=== PATIENT | male | born 1985 | race Caucasian/White ===

== ENCOUNTER 2018-04-15 08:19 | Day surgery (SDC) | payer OTHER ==
[2018-04-11 17:01] LABS: Absolute Lymphocytes (CBC) 2.4 K/uL (0.7-4.9); Absolute Monocytes 0.5 K/uL (0.1-1.3); Absolute Neutrophil 5.3 K/uL (1.8-8.0); Basophils % 0.7 % (0-1.3); Eosinophils % 1.2 % (0-4.4); Hematocrit 44.9 % (39.6-49.0); Lymphocytes % 28.4 % (15.3-44.8); MCH 28.4 pg (27.0-35.0); MCV 81.5 fL (80-100); MPV 7.6 fL (7.6-11.3); Monocytes % 5.7 % (3.3-12.3); RBC Red Blood Cell Count 5.51 M/uL (4.33-5.43)
[2018-04-11 17:07] LABS: Potassium 4.2 mmol/L (3.5-5.1)
[2018-04-11 17:14] LABS: Albumin 4.3 g/dL (3.4-5.0); Bilirubin Direct 0.2 mg/dL (0-0.2); Bilirubin Total 0.8 mg/dL (0.2-1.0); Protein, Total 7.5 g/dL (6.4-8.2)
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
[2018-04-15] MEDS ORDERED: CEFOXITIN/SWI 1gm 1 GM/10 ML SYR ONE (08:41)
[2018-04-15] MEDS ORDERED: Ringers Lactate 1,000 ML IV ONE ×2 (08:41→11:30)
[2018-04-15] MEDS ORDERED: CEFAZOLIN/SWI 1gm 1 GM/10 ML SYR ONE (08:47)
[2018-04-15] MEDS ORDERED: PROPOFOL 200 MG/20 ML VIAL IV ONE (08:57)
[2018-04-15] MEDS ORDERED: ROCURONIUM 50 MG/5 ML VIAL IV ONE (08:57)
[2018-04-15] MEDS ORDERED: FENTANYL CITR 250 MCG/5 ML ONE (08:57)
[2018-04-15] MEDS ORDERED: LIDOCAINE 2% MPF 5 ML VIAL ONE (08:57)
[2018-04-15] MEDS ORDERED: MIDAZOLAM HCL 2 MG/2 ML INJ ONE (08:57)
[2018-04-15] MEDS ORDERED: ONDANSETRON HCL 40 MG/20 ML VIAL ONE (08:57)
[2018-04-15] MEDS ORDERED: FENTANYL CITR 100 MCG/2 ML ONE (10:34)
[2018-04-15] MEDS ORDERED: KETOROLAC 30 MG/ML INJ ONE (11:02)
[2018-04-15] MEDS ORDERED: Mastisol Adhesive Liq ONE (11:06)
[2018-04-15] MEDS: MEPERIDINE HCL 25 MG/0.5 ML ONE ×2 (11:36→11:41)
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
[2018-04-15] MEDS ORDERED: LABETALOL HCL 100 MG/20 ML ONE (11:56)
[2018-04-15] MEDS ORDERED: PROMETHAZINE 25 MG/ML VIAL ONE (12:11)
[2018-04-15] MEDS ORDERED: MEPERIDINE HCL 25 MG/0.5 ML ONE (12:14)
[2018-04-15] MEDS ORDERED: HYDROCODONE/APAP 5/325 MG TAB ONE (12:51)
--- NOTE | 2018-04-17 00:51 | DS ---
Date of Discharge: 04/15/2018 Diagnoses: Acute cholecystitis, symptomatic cholelithiasis, and morbid obesity. Procedures: Laparoscopic cholecystectomy, laparoscopic extensive lysis of adhesions. Disposition: Home. Activity: As tolerated. No heavy lifting. Followup: Follow up in my office in 1 week. Call for appointment on [phone]. Keep the area dry fo r 48 hours, then may shower. Medications: See orders. Medications: See orders. ETHEL/DESTINI Voice ID: [id number] Report ID: [id number]
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
== END 2018-04-15 13:55 | disposition home or self-care (01) ==
LOC: OR 08:19
PROVIDERS: ATTEND Surgery
PROC: 0DNW4ZZ Release Peritoneum, Percutaneous Endoscopic Approach (ICD-10-PCS; 2018-04-15)
PROC: 0FT44ZZ Resection of Gallbladder, Percutaneous Endoscopic Approach (ICD-10-PCS; principal; 2018-04-15 09:45)
DX: K80.12 Calculus of gallbladder with acute and chronic cholecystitis without obstruction (principal); K66.0 Peritoneal adhesions (postprocedural) (postinfection); K21.9 Gastro-esophageal reflux disease without esophagitis; E66.01 Morbid (severe) obesity due to excess calories; Z68.33 Body mass index [BMI] 33.0-33.9, adult; Z87.828 Personal history of other (healed) physical injury and trauma; Z80.3 Family history of malignant neoplasm of breast
CPT/HCPCS: 36415; 80048; 80076; 82150; 83690; 85025; 88304; J0690; J2175; J2250; J2405; J2550; J2704; J3010

== ENCOUNTER 2022-10-02 19:52 | Emergency (ER) | payer OTHER ==
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
[2022-10-02 20:57] LABS: Absolute Lymphocytes (CBC) 2.9 K/uL (0.7-4.9); Hematocrit 45.6 % (39.6-49.0); Lymphocytes % 33.2 % (15.3-44.8); MCV 83.5 fL (80-100); MPV 7.2 fL (7.6-11.3); RBC Red Blood Cell Count 5.46 M/uL (4.33-5.43)
[2022-10-02 21:16] LABS: Albumin 4.4 g/dL (3.4-5.0); Bilirubin Direct 0.2 mg/dL (0-0.2); Magnesium 2.1 mg/dL (1.6-2.4); Potassium 3.8 mEq/L (3.5-5.1); Protein, Total 8.2 g/dL (6.4-8.2); Troponin High Sensitivity 5.8 pg/mL (<58.9)
--- NOTE | 2022-10-02 21:26 | RAD REPORT ---
EXAM DESCRIPTION: [place] Single View10/02/2022 8:57 pm CLINICAL HISTORY: CHEST PAIN COMPARISON: No comparisons TECHNIQUE: Portable AP view of the chest. FINDINGS: The lungs are clear. No pneumothorax or effusion. The cardiomediastinal contours are unrem arkable. IMPRESSION: No acute cardiopulmonary process.
--- NOTE | 2022-10-02 22:49 | ER ---
Nurse's Notes [facility] Name: Jarek Navarrete Age: 36 yrs Sex: Male : 1985 Arrival Date: 10/02/2022 Time: 19:52 Bed Treatment Private MD: Diagnosis: Chest pain, unspecified Presentation: 10/02 20:20 Chief complaint: Patient states: right upper quadrant pain radiating to right chest lg3 starting around 1200 today and getting worse and more frequent. denies N/V. Coronavirus screen: Client denies travel out of the [place] in the last 14 days. At this time, the client does not indicate any symptoms associated with coronavirus-19. Ebola Screen: No symptoms or risks identified at this time. Risk Assessment: Do you want to hurt yourself or someone else? Patient reports no desire to harm self or others. Onset of symptoms was October 02, 2022. 20:20 Method Of Arrival: Ambulatory lg3 20:20 Acuity: BRANT 3 lg3 20:38 Initial Sepsis Screen: Does the patient meet any 2 criteria? No. Patient's initial lg3 sepsis screen is negative. Does the patient have a suspected source of infection? No. Patient's initial sepsis screen is negative. Triage Assessment: 20:23 General: Appears in no apparent distress. uncomfortable, Behavior is calm, cooperative. mb9 Pain: Complains of pain in right upper quadrant Pain radiates to chest. EENT: No deficits noted. No signs and/or symptoms were reported regarding the EENT system. Neuro: No deficits noted. Wild Agitation-Sedation Scale (RASS): 0 - Alert and Calm Level of Consciousness is awake, alert, obeys commands, Oriented to person, place, time, situation. Cardiovascular: Reports chest pain, Denies lightheadedness, shortness of breath, Capillary refill < 3 seconds Clubbing of nail beds is absent JVD is absent Patient's skin is warm and dry. Respiratory: No deficits noted. Airway is patent Respiratory effort is even, unlabored, Respiratory pattern is regular, symmetrical. GI: Abdomen is round non-distended, Reports upper abdominal pain, cramping. : No deficits noted. No signs and/or symptoms were reported regarding the genitourinary system. Derm: No deficits noted. No signs and/or symptoms reported regarding the dermatologic system. Skin is intact, is healthy with good turgor, Skin is dry, Skin is normal, Skin temperature is warm. Musculoskeletal: No deficits noted. No signs and/or symptoms reported regarding the musculoskeletal system. Circulation, motion, and sensation intact. Range of motion: intact in all extremities. Historical: - Allergies: 20:23 No Known Allergies; mb9 - Home Meds: 20:23 Clonazepam Oral [Active]; Lamictal Oral [Active]; Lunesta oral [Active]; olanzapine mb9 oral [Active]; Lisinopril Oral [Active]; - PMHx: 20:23 HTN; PTSD; mb9 - PSHx: 20:23 Vasectomy; Cholecystectomy; right ankle; bladder; mb9 - Immunization history:: Adult Immunizations up to date, Client reports having NOT received the Covid vaccine. - Social history:: Smoking status: Patient reports the use of cigarette tobacco products, smokes one-half pack cigarettes per day, Patient/guardian denies using alcohol, street drugs. Screenin:19 [facility] ED Fall Risk Assessment (Adult) History of falling in the last 3 months, mb9 including since admission No falls in past 3 months (0 pts) Confusion or Disorientation No (0 pts) Intoxicated or Sedated No (0 pts) Impaired Gait No (0 pts) Mobility Assist Device Used No (0 pt) Altered Elimination No (0 pt) Score/Fall Risk Level 0 - 2 = Low Risk Oriented to surroundings, Maintained a safe environment, Educated pt \T\ family on fall prevention, incl call for assistance when getting out of bed. Abuse screen: Denies threats or abuse. Nutritional screening: No deficits noted. Tuberculosis screening: No symptoms or risk factors identified. Assessment: 21:25 General: Appears in no apparent distress. Behavior is calm, cooperative, appropriate mb9 for age. Pain: Complains of pain in chest Pain does not radiate. Pain began suddenly. Neuro: Level of Consciousness is awake, alert, obeys commands, Oriented to person, place, time, situation, none. Cardiovascular: Heart tones S1 S2 present Patient's skin is warm and dry. Rhythm is regular. Respiratory: Airway is patent Respiratory effort is even, unlabored, Respiratory pattern is regular, symmetrical. GI: Abdomen is round non-distended, Bowel sounds present X 4 quads. Abd is soft and non tender X 4 quads. Patient currently denies diarrhea, nausea, vomiting. Derm: Skin is pink, warm \T\ dry. Musculoskeletal: Range of motion: intact in all extremities. 22:59 Reassessment: Patient and/or family updated on plan of care and expected duration. Pain mb9 level reassessed. Patient is alert, oriented x 3, equal unlabored respirations, skin warm/dry/pink. Patient states feeling better. Patient states symptoms have improved. Vital Signs: 20:38 BP 142 / 85; Pulse 91; Resp 18 S; Temp 98.4(TE); Pulse Ox 96% on R/A; lg3 21:25 BP 146 / 98; Pulse 85; Resp 17; Pulse Ox 100% on R/A; mb9 22:59 BP 121 / 80; Pulse 88; Resp 17; Pulse Ox 100% on R/A; mb9 ED Course: 19:56 Patient arrived in ED. ag3 20:12 [facility]ble Posada [facility]C [facility] kb 20:13 Rick Dietrich MD is Attending Physician. kb 20:21 Triage completed. lg3 20:23 Arm band placed on right wrist. mb9 20:37 Inserted saline lock: 20 gauge in left antecubital area, using aseptic technique. Blood ah1 collected. 20:39 Basic Metabolic Panel Sent. ah1 20:39 CBC with Diff Sent. ah1 20:39 D-Dimer Sent. ah1 20:39 LFT's Sent. ah1 20:39 Magnesium Sent. ah1 20:39 NT PRO-BNP Sent. ah1 20:39 Troponin HS Sent. ah1 20:59 XRAY Chest (1 view) In Process Unspecified. EDMS 21:19 Antonette Lorenzo, RYLAND is Primary Nurse. mb9 21:19 Placed in gown. Bed in low position. Call light in reach. Side rails up X 1. Client mb9 placed on continuous cardiac and pulse oximetry monitoring. NIBP monitoring applied. organ tuner on. 21:19 No provider procedures requiring assistance completed. mb9 23:00 IV discontinued, intact, bleeding controlled, No redness/swelling at site. Pressure mb9 dressing applied. Administered Medications: 22:51 Drug: Ketorolac IVP 15 mg Route: IVP; Site: left antecubital; mb9 23:00 Follow up: Response: No adverse reaction mb9 Medication: 21:19 VIS not applicable for this client. mb9 Outcome: 22:48 Discharge ordered by MD. mishra 22:59 Discharged to home ambulatory. mb9 22:59 Condition: stable 22:59 Discharge instructions given to patient, Instructed on discharge instructions, follow up and referral plans. Demonstrated understanding of instructions, follow-up care, medications, Prescriptions given X 1. 23:00 Patient left the ED. mb9 Signatures: Dispatcher [employer] EDMS Seble Posada, BREAKER HAND-C BREAKER HAND-Bárbara Oglesby Lacie RN RN lg3 Antonette Lorenzo RN RN mb9 Lynne Pedro
--- NOTE | 2022-10-02 22:49 | EDPHYS ---
Physician Documentation [facility] Name: Jarek Navarrete Age: 36 yrs Sex: Male : 1985 Arrival Date: 10/02/2022 Time: 19:52 Bed Treatment Private MD: ED Physician Rick Dietrich HPI: 10/02 22:46 This 36 yrs old Male presents to ER via Ambulatory with complaints of Chest Pain. kb 22:46 The patient or guardian reports chest pain that is located primarily in the anterior kb chest wall, right. The pain does not radiate. Associated signs and symptoms: Pertinent positives: None. The chest pain is described as sharp. Duration: The patient or guardian reports multiple episodes, that are intermittent, with no pattern. Modifying factors: The symptoms are alleviated by nothing. the symptoms are aggravated by nothing. Severity of pain: At its worst the pain was moderate in the emergency department the pain is unchanged. The patient has not experienced similar symptoms in the past. The patient has not recently seen a physician. 22:47 Sharp pain to right lower chest that started at noon today and has gotten worse and kb more frequent. Historical: - Allergies: 20:23 No Known Allergies; mb9 - Home Meds: 20:23 Clonazepam Oral [Active]; Lamictal Oral [Active]; Lunesta oral [Active]; olanzapine mb9 oral [Active]; Lisinopril Oral [Active]; - PMHx: 20:23 HTN; PTSD; mb9 - PSHx: 20:23 Vasectomy; Cholecystectomy; right ankle; bladder; mb9 - Immunization history:: Adult Immunizations up to date, Client reports having NOT received the Covid vaccine. - Social history:: Smoking status: Patient reports the use of cigarette tobacco products, smokes one-half pack cigarettes per day, Patient/guardian denies using alcohol, street drugs. ROS: 22:45 Constitutional: Negative for fever, chills, and weight loss. kb 22:45 Cardiovascular: Positive for chest pain, of the right breast. 22:45 All other systems are negative. Exam: 22:45 Constitutional: This is a well developed, well nourished patient who is awake, alert, kb and in no acute distress. Head/Face: Normocephalic, atraumatic. ENT: Moist Mucous membranes Chest/axilla: Normal chest wall appearance and motion. Cardiovascular: Regular rate and rhythm with a normal S1 and S2. No gallops, murmurs, or rubs. No pulse deficits. Respiratory: Respirations even and unlabored. No increased work of breathing. Talking in full sentences Abdomen/GI: Soft, non-tender. No distention Skin: Warm, dry with normal turgor. Normal color. MS/ Extremity: Pulses equal, no cyanosis. Neurovascular intact. Full, normal range of motion. Neuro: Awake and alert, GCS 15, oriented to person, place, time, and situation. Moves all extremities. Normal gait. 10/03 00:50 ECG was reviewed by the Attending Physician. kb Vital Signs: 10/02 20:38 BP 142 / 85; Pulse 91; Resp 18 S; Temp 98.4(TE); Pulse Ox 96% on R/A; lg3 21:25 BP 146 / 98; Pulse 85; Resp 17; Pulse Ox 100% on R/A; mb9 22:59 BP 121 / 80; Pulse 88; Resp 17; Pulse Ox 100% on R/A; mb9 MDM: 20:13 Patient medically screened. kb 22:46 Data reviewed: vital signs, nurses notes. Consideration of Admission/Observation kb Escalation of care including admission/observation considered. 22:47 Differential diagnosis: abnormal EKG, acute myocardial infarction, chest wall pain, kb pneumothorax, pulmonary embolus. Test considered but Not performed: CT: CT chest considered. D-dimer negative. Counseling: I had a detailed discussion with the patient and/or guardian regarding: the historical points, exam findings, and any diagnostic results supporting the discharge/admit diagnosis, lab results, radiology results, the need for outpatient follow up, a family practitioner, to return to the emergency department if symptoms worsen or persist or if there are any questions or concerns that arise at home. 10/02 20:18 Order name: Basic Metabolic Panel; Complete Time: :28 kb 10/02 20:18 Order name: CBC with Diff; Complete Time: :28 kb 10/02 20:18 Order name: D-Dimer; Complete Time: 21:09 kb 10/02 20:18 Order name: LFT's; Complete Time: :28 kb 10/02 20:18 Order name: Magnesium; Complete Time: :28 kb 10/02 20:18 Order name: NT PRO-BNP; Complete Time: : kb 10/02 20:18 Order name: Troponin HS; Complete Time: : kb 10/02 20:18 Order name: XRAY Chest (1 view); Complete Time: :28 kb 10/02 20:18 Order name: EKG; Complete Time: 20:19 kb 10/02 20:18 Order name: Cardiac monitoring; Complete Time: : kb 10/02 20:18 Order name: EKG - Nurse/Tech; Complete Time: :24 kb 10/02 20:18 Order name: IV Saline Lock; Complete Time: : kb 10/02 20:18 Order name: Labs collected and sent; Complete Time: : kb 10/02 20:18 Order name: O2 Per Protocol; Complete Time: : kb 10/02 20:18 Order name: O2 Sat Monitoring; Complete Time: :29 kb EC/09 00:50 Rate is 101 beats/min. Rhythm is regular. QRS [place] is Normal. MA interval is normal at kb 136 msec. QRS interval is normal at 94 msec. QT interval is normal at 422 msec. Administered Medications: 10/02 22:51 Drug: Ketorolac IVP 15 mg Route: IVP; Site: left antecubital; mb9 23:00 Follow up: Response: No adverse reaction mb9 Disposition: 10/03 07:47 Co-signature as Attending Physician, Rick Dietrich MD I agree with the assessment sp4 and plan of care. I reviewed the patient's care provided by the Advanced Practice Provider and agree with the diagnosis and treatment plan. Disposition Summary: 10/02/22 22:48 Discharge Ordered Location: Home kb Condition: Stable kb Diagnosis - Chest pain, unspecified kb Followup: kb - With: Emergency Department - When: As needed - Reason: Worsening of condition Followup: kb - With: Private Physician - When: 2 - 3 days - Reason: Recheck today's complaints, Continuance of care, Re-evaluation by your physician Discharge Instructions: - Discharge Summary Sheet kb - Nonspecific Chest Pain, Adult kb - Chest Wall Pain, [id number] kb Forms: - Work release form kb - Medication Reconciliation Form kb - Thank You Letter kb - Antibiotic Education kb - Prescription Opioid Use kb Prescriptions: - Diclofenac Sodium 75 mg Oral Tablet Sustained Release - take 1 tablet by ORAL route 2 times per day; 30 tablet; Refills: 0, Product kb Selection Permitted Signatures: Dispatcher [employer] Seble Sung FNP-C FNP-Ckb Breneman, Mary Beth RN RN mb9 Rick Dietrich MD MD sp4
[2022-10-02] MEDS ORDERED: KETOROLAC 30 MG/ML INJ ONE (23:01)
[2022-10-03 00:23] VITALS: TEMP 98.4
[2022-10-03 00:29] VITALS: O2SAT 100
[2022-10-03 00:35] VITALS: BP 121/80
--- NOTE | 2022-10-03 15:36 | EKG ---
Test Date: 2022-10-02 Test Time: 20:10:24 Surgery Tech: COLLETTE MEASUREMENT RESULTS: Intervals: Rate: 101 IN: 136 QRSD: 94 QT: 326 QTc: 422 Agency: P: 56 IN: 136 QRS: 100 T: 65 INTERPRETIVE STATEMENTS: Sinus tachycardia Otherwise normal ECG No previous ECG available for comparison Electronically Signed On 10-03-22 15:34:28 CDT by Phani Hughes
== END 2022-10-02 23:00 | disposition home or self-care (01) ==
LOC: ER 19:52
DX: R07.89 Other chest pain (principal); F17.210 Nicotine dependence, cigarettes, uncomplicated; I10 Essential (primary) hypertension
CPT/HCPCS: 36415; 71045; 80048; 80076; 83735; 83880; 84484; 85025; 85379; 93005; 96374; 99285